=== PATIENT | male | born 2000 | race Hispanic/Latino ===

== ENCOUNTER 2021-10-28 12:38 | Emergency (ER) | payer BC ==
[~2021-10-28] VITALS: Ht 177.8 cm; Wt 68.0 kg
[2021-10-28 13:21] LABS: APPEARANCE,URINE SL CLOUDY (CLEAR); BILIRUBIN,URINE NEGATIVE (NEGATIVE); COLOR,URINE YELLOW (YELLOW); GLUCOSE, URINE (UA) NEGATIVE (NEGATIVE); KETONES,URINE NEGATIVE (NEGATIVE); LEUKOCYTE ESTERASE ,URINE SMALL (NEGATIVE); NITRATE,URINE NEGATIVE (NEGATIVE); OCCULT BLOOD,URINE MODERATE (NEGATIVE); PROTEIN,URINE NEGATIVE (NEGATIVE); UROBILINOGEN,URINE 0.2 mg/dL (0.2-1.0)
[2021-10-28] MEDS ORDERED: LIDOCAINE HCL-MPF 1% 2ML VIAL ONE (13:29)
[2021-10-28] MEDS ORDERED: CEFTRIAXONE 1G VIAL IM ONE (13:30)
[2021-10-28] MEDS ORDERED: AZITHROMYCIN 250 MG TABLET PO ONE (13:30)
[2021-10-28] MEDS ORDERED: PHENAZOPYRIDINE HCL 200 MG TABLET PO ONE (13:30)
[2021-10-28 13:36] LABS: BACTERIA,URINE Rare /HPF (None Seen); RBC,URINE 26-50 /HPF (0-1); SQUAMOUS EPITHELIAL CELL,UR Rare /HPF (0-2); WBC,URINE >100 /HPF (0-1)
[2021-10-28] MEDS ORDERED: DOXY-336 PO (13:40)
[2021-10-28] MEDS ORDERED: PHEN-847 PO (13:40)
[2021-10-28] MEDS ORDERED: CEPH500B PO (13:40)
[2021-10-28 14:05] VITALS: BP 132/78
== END 2021-10-28 14:06 | disposition home or self-care (01) ==
LOC: EDH 12:38
DX: N30.90 Cystitis, unspecified without hematuria (principal)
CPT/HCPCS: 81001; 87088; 87486; 87797; 96372; 99284; J0696; J3490